=== PATIENT | male | born 1975 | race Two or more races ===

== ENCOUNTER 2021-11-07 08:38 | Emergency (ER) | payer OTHER ==
[2021-11-07] MEDS ORDERED: Lidocaine 2% 20 ML MDV INFILT ONE (08:39)
[2021-11-07] MEDS ORDERED: Acetaminophen/HYDROcodone 325-5 MG Tab PO STA (11:46)
== END 2021-11-07 14:15 | disposition home or self-care (01) ==
LOC: FB.ED 08:38
DX: S02.31XA Fracture of orbital floor, right side, initial encounter for closed fracture (principal); S01.81XA Laceration without foreign body of other part of head, initial encounter; Z79.899 Other long term (current) drug therapy; V48.5XXA Car driver injured in noncollision transport accident in traffic accident, initial encounter; Y92.410 Unspecified street and highway as the place of occurrence of the external cause
CPT/HCPCS: 12014; 36415; 70450; 70486; 80053; 85025; 99281; 99284-25